=== PATIENT | male | born 1950 | race Caucasian/White ===

== ENCOUNTER 2018-12-02 08:40 | Day surgery (SDC) | payer OTHER, MEDICAID, MEDICARE ==
[~2018-12-02 08:40] MED LIST: PROPOFOL 200 MG INJ
[2018-12-02] MEDS ORDERED: LIDOCAINE 2% (SDV) 5 ML INJ (10:52)
[2018-12-02] MEDS ORDERED: PROPOFOL 60 ML (10:52)
[2018-12-02] MEDS ORDERED: EPHEDrine SULFATE 50 MG/5 ML SYG IV (11:00)
[2018-12-02] MEDS ORDERED: FENTAnyl 50 MCG/ML VIAL IV ×3 (11:00)
[2018-12-02] MEDS ORDERED: LABETALOL HCL 20MG INJ IV (11:00)
[2018-12-02] MEDS ORDERED: ONDANSETRON 4 MG INJ IV (11:00)
[2018-12-02] MEDS ORDERED: hydrALAzine 20 MG INJ IV (11:00)
== END 2018-12-02 15:44 | disposition home or self-care (01) ==
LOC: GIL 08:40
DX: Z12.11 Encounter for screening for malignant neoplasm of colon (principal); K64.8 Other hemorrhoids
CPT/HCPCS: 43235; 88305; 88312

== ENCOUNTER → 2019-02-05 | Emergency (ER) | payer OTHER ==
[2019-02-05 19:17] LABS: ADD MAN DIFF? NO
[2019-02-05 19:21] LABS: BASOPHILS % 0.3 % (0.0-2.0); EOSINOPHILS % 0.3 % (0.0-7.0); HEMATOCRIT 42.1 % (42.0-52.0); HEMOGLOBIN 13.5 g/dl (14.0-18.0); LYMPHOCYTES # 2.6 10^3/ul (0.8-2.9); MEAN CORPUSCULAR HEMOGLOBIN 29.9 pg (29.0-33.0); MEAN CORPUSCULAR HGB CONC 32.1 g/dl (32.0-37.0); MEAN CORPUSCULAR VOLUME 93.1 fl (82.0-101.0); MEAN PLATELET VOLUME 10.9 fl (7.4-10.4); MONOCYTE # 0.4 10^3/ul (0.3-0.9); MONOCYTES % 6.7 % (0.0-11.0); NEUTROPHIL # 2.8 10^3/ul (1.6-7.5); NEUTROPHILS % 48.5 % (39.0-77.0); PLATELET COUNT 147 10^3/UL (140-415); RED BLOOD COUNT 4.52 10^6/ul (4.70-6.10); RED CELL DISTRIBUTION WIDTH 16.4 % (11.5-14.5)
[2019-02-05 19:21] LABS: WHITE BLOOD COUNT 5.8 10^3/ul (4.8-10.8)
[2019-02-05] MEDS: BELLADONNA/PHENOBARBITAL TAB PO (19:41)
[2019-02-05] MEDS: ONDANSETRON 4 MG INJ IV (19:41)
[2019-02-05] MEDS: SOD CHLORIDE 0.9% 500 ML IV (19:41)
[2019-02-05] MEDS: LIDOCAINE/MYLANTA 40 ML BTL PO (19:41)
[2019-02-05 19:42] LABS: ALANINE AMINOTRANSFERASE 30 IU/L (13-69); ALBUMIN/GLOBULIN RATIO 1.14; ALKALINE PHOSPHATASE 152 IU/L (42-121); ANION GAP 7 (5-13); ASPARTATE AMINO TRANSFERASE 35 IU/L (15-46); BILIRUBIN,INDIRECT 0.4 mg/dl (0-1.1); BILIRUBIN,TOTAL 0.4 mg/dl (0.2-1.3); BLOOD UREA NITROGEN 24 mg/dl (7-20); CALCIUM 9.6 mg/dl (8.4-10.2); CARBON DIOXIDE 29 mmol/L (21-31); CHLORIDE 107 mmol/L (97-110); CREATININE 0.79 mg/dl (0.61-1.24); Estimated GFR > 60 mL/min (>60); GLUCOSE 97 mg/dl (70-220); LIPASE 130 U/L (23-300); POTASSIUM 3.9 mmol/L (3.5-5.1); SODIUM 143 mmol/L (135-144); TOTAL PROTEIN 7.5 g/dl (6.1-8.1)
[2019-02-05] MEDS: KETOROLAC 15 MG INJ IV (19:42)
== END | disposition home or self-care (01) ==
LOC: E/R 13:55
DX: R10.11 Right upper quadrant pain (principal)
CPT/HCPCS: 36415; 71045; 76705; 80053; 83690; 84484; 85025; 93005; 96374; 96375; 99285-25

== ENCOUNTER 2019-02-20 16:11 | Emergency (ER) | payer OTHER ==
[2019-02-20 16:33] LABS: ADD MAN DIFF? NO
[2019-02-20 16:34] LABS: WHITE BLOOD COUNT 5.9 10^3/ul (4.8-10.8)
[2019-02-20 16:34] LABS: BASOPHILS % 0.3 % (0.0-2.0); EOSINOPHILS % 0.7 % (0.0-7.0); HEMATOCRIT 42.5 % (42.0-52.0); HEMOGLOBIN 13.6 g/dl (14.0-18.0); LYMPHOCYTES # 2.6 10^3/ul (0.8-2.9); MEAN CORPUSCULAR HEMOGLOBIN 29.8 pg (29.0-33.0); MEAN CORPUSCULAR VOLUME 93.2 fl (82.0-101.0); MEAN PLATELET VOLUME 11.3 fl (7.4-10.4); MONOCYTE # 0.4 10^3/ul (0.3-0.9); MONOCYTES % 7.1 % (0.0-11.0); NEUTROPHIL # 2.9 10^3/ul (1.6-7.5); NEUTROPHILS % 48.6 % (39.0-77.0); PLATELET COUNT 173 10^3/UL (140-415); RED BLOOD COUNT 4.56 10^6/ul (4.70-6.10); RED CELL DISTRIBUTION WIDTH 15.9 % (11.5-14.5)
[2019-02-20] MEDS: SOD CHLORIDE 0.9% 500 ML IV (16:34)
[2019-02-20 16:35] LABS: ADD UMIC NO; UR ASCORBIC ACID NEGATIVE (NEGATIVE); UR BILIRUBIN (Dip) NEGATIVE (NEGATIVE); UR BLOOD (Dip) NEGATIVE (NEGATIVE); UR CLARITY CLEAR (CLEAR); UR COLOR STRAW (YELLOW); UR GLUCOSE (Dip) NEGATIVE (NEGATIVE); UR KETONES (Dip) TRACE mg/dL (NEGATIVE); UR LEUKOCYTE ESTERASE (Dip) NEGATIVE Leu/ul (NEGATIVE); UR NITRITE (Dip) NEGATIVE (NEGATIVE); UR SPECIFIC GRAVITY (Dip) 1.013 (1.003-1.030); UR TOTAL PROTEIN (Dip) NEGATIVE (NEGATIVE); UR UROBILINOGEN (Dip) NEGATIVE (NEGATIVE)
[2019-02-20 17:02] LABS: ALANINE AMINOTRANSFERASE 24 IU/L (13-69); ALKALINE PHOSPHATASE 160 IU/L (42-121); ANION GAP 8 (5-13); ASPARTATE AMINO TRANSFERASE 33 IU/L (15-46); BILIRUBIN,INDIRECT 0.5 mg/dl (0-1.1); BILIRUBIN,TOTAL 0.5 mg/dl (0.2-1.3); BLOOD UREA NITROGEN 25 mg/dl (7-20); CARBON DIOXIDE 29 mmol/L (21-31); CHLORIDE 106 mmol/L (97-110); CREATININE 0.84 mg/dl (0.61-1.24); Estimated GFR > 60 mL/min (>60); GLUCOSE 102 mg/dl (70-220); SODIUM 143 mmol/L (135-144); TOTAL PROTEIN 7.5 g/dl (6.1-8.1)
[2019-02-20 17:08] LABS: LIPASE 142 U/L (23-300)
[2019-02-20 17:22] LABS: TROPONIN-I 0.016 ng/ml (0.000-0.120)
[2019-02-20] MEDS: SOD CHLORIDE 0.9% 1,000 ML IV (17:30)
== END 2019-02-20 18:30 | disposition home or self-care (01) ==
LOC: E/R 16:11
DX: R42 Dizziness and giddiness (principal); R10.11 Right upper quadrant pain
CPT/HCPCS: 36415; 70450; 71045; 76705; 80048; 80076; 81003; 82962; 83690; 84484; 85025; 93005; 99285-25

== ENCOUNTER 2019-05-25 17:06 | Emergency (ER) | payer OTHER, MEDICAID ==
[2019-05-25] MEDS: KETOROLAC 30 MG INJ IM (20:45)
[2019-05-25] MEDS: LIDOCAINE/MYLANTA 40 ML BTL PO (20:45)
== END 2019-05-25 21:36 | disposition home or self-care (01) ==
LOC: FTE 17:06
DX: J02.9 Acute pharyngitis, unspecified (principal); K21.9 Gastro-esophageal reflux disease without esophagitis; I10 Essential (primary) hypertension
CPT/HCPCS: 70360; 96372; 99284-25

== ENCOUNTER 2019-05-29 16:02 | Emergency (ER) | payer OTHER | END 2019-05-29 17:23 | disposition home or self-care (01) | LOC: E/R 17:23 | DX: K21.9 Gastro-esophageal reflux disease without esophagitis (principal); I10 Essential (primary) hypertension | CPT/HCPCS: 99282 ==

== ENCOUNTER 2019-06-11 08:43 | Day surgery (SDC) | payer OTHER ==
[2019-06-11] MEDS ORDERED: PROPOFOL 20 ML (10:12)
== END 2019-06-11 10:33 | disposition home or self-care (01) ==
LOC: GIL 08:43
DX: K29.00 Acute gastritis without bleeding (principal)
CPT/HCPCS: 43239; 88305; 88312